=== PATIENT | male | born 1965 | race African-American/Black ===

== ENCOUNTER 2022-02-17 19:48 | Emergency (ER) | payer OTHER, SELFPAY ==
[2022-02-17 19:50] VITALS: BP 131/81; PULSE 84; RESP 16; TEMP 36.6; O2SAT 98; BMI 22.0
--- NOTE | 2022-02-17 20:04 | EDS_ITS ---
HPI History of Present Illness Chief Complaint: Substance Abuse Informant: patient Narrative Narrative: Patient presents requesting a prescription for Librium so he can detox himself from alcohol while awaiting a bed assignment at a rehab center. 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 In June of this year he was treated in [place] where he went to an emergency room and got a prescription for Librium and then entered a detox program where he was supervised. He states he slipped up recently and started drinking again. He feels like he is having some withdrawal symptoms that include anxiety and itching. He is requesting a prescription for Librium tonight. He states he is supposed to be entering a rehab center in [place] but is awaiting a call with an open bed. [facility] Medical History (Updated 02/17/22 @ 20:[address] Moriah Gutierrez MD) Alcoholism Allergy/AdvReac Type Severity Reaction Status Date / Time No Known Allergies Allergy Verified 02/17/22 19:52 ROS ROS ED Constitutional Constitutional ED: Denies chills or fever(s) Eyes Eyes: Denies change in vision or discharge from eye(s) ENT ENT ED: Denies discharge from eye(s), rhinorrhea or sore throat Cardiovascular Cardiovascular: Denies chest pain or palpitations Respiratory/Chest Respiratory/Chest: Denies cough or dyspnea Gastrointestinal Gastrointestinal: Denies abdominal pain, diarrhea, nausea or vomiting Genitourinary Genitourinary ED: Denies dysuria Musculoskeletal Musculoskeletal: Denies back pain or extremity pain Integumentary Reports other Details: Pruritus ; Denies Abrasions or rash Neurologic Neurologic: Denies headache(s) or weakness Psychiatric Psychiatric: Reports anxiety; Denies depression Endocrine Endocrinology: Denies polydipsia or polyuria Allergic/Immunologic Allergic/Immunologic ED: Denies lip swelling or urticaria EXAM Physical Exam Const Vital Signs: 02/17/22 19:50 Temperature 98 F Temperature Source Temporal Pulse Rate 84 Respiratory Rate 16 Blood Pressure 131/81 H Blood Pressure Mean 97 Pulse Ox 98 Oxygen Delivery Method Room Air Positive well nourished and well developed General Appearance ED: well developed HEENT Reports normocephalic and head/scalp atraumatic Eyes PERRL and EOMs intact bilaterally Neck supple Chest Wall inspection of chest normal and palpation of chest normal Resp normal respiratory effort and clear to auscultation bilaterally Cardio regular rate and regular rhythm GI normal to inspection, nondistended, normoactive bowel sounds Palpation: soft Extremity normal to inspection Neuro oriented x3 and no sensory deficits noted Sensorium / Orientation: alert Motor Exam: strength 5/5 throughout Psych mental status grossly normal Skin no rashes or lesions noted and no wounds General Skin Exam: Negative for jaundice MDM MDM MDM Narrative Medical decision making narrative: I discussed with the patient that detox and alcohol especially requiring Librium needs to be a medically supervised detox. I do not feel comfortable writing in this prescription for him to take as an outpatient. I did offer our detox services here at the hospital. Patient states he works through the week but would be able to come back on the weekend to get initiated on treatment. He will return on Tuesday evening where he can be medically supervised for detox. He states he has had seizures in the past when he withdraws from alcohol. Return instructions were given and he knows he can return anytime. Discharge Plan Triage Chief Complaint: Substance Abuse Other Complaint: Meds Only ED Provider: Moriah Gutierrez Dx/Rx/DC Orders Instructions: ED Alcohol Abuse Primary Care Provider: Kayleigh Cerda,Out of Referrals: Kayleigh Cerda,Out of [Primary Care Provider] - Activity Restrictions/Additional Instructions: As discussed, please return anytime for admission to our detox program. If weekends work best with your work schedule, please return Tuesday evening or Tuesday morning and we will get you started on the detox program. Disposition Disposition: Home, Self Care
[2022-02-17 20:07] VITALS: BP 131/81; PULSE 84; RESP 16; O2SAT 98
[2022-02-17 20:18] VITALS: BP 131/81; PULSE 84; RESP 16; O2SAT 98; BMI 22.0
== END 2022-02-17 20:24 | disposition home or self-care (01) ==
LOC: ED 20:15
PROVIDERS: Emergency Provider Emergency Medicine; Visit Provider Emergency Medicine
DX: F10.129 Alcohol abuse with intoxication, unspecified (principal)
CPT/HCPCS: 99283